=== PATIENT | female | born 1975 | race Caucasian/White ===

== ENCOUNTER 2024-07-13 11:17 | Emergency (ER) | payer OTHER ==
[~2024-07-13] VITALS: Ht 152.4 cm; Wt 62.7 kg
[2024-07-13 11:30] VITALS: BP 159/101; PULSE 63; RESP 16; TEMP 98.2; O2SAT 98
[2024-07-13] MEDS: KETOROLAC 60 MG/2 ML VIAL IM ONE (11:59)
[2024-07-13] MEDS ORDERED: ONDA8TAB87 PO (12:18)
[2024-07-13] MEDS ORDERED: IBUP-2213 PO (12:18)
[2024-07-13] MEDS: ONDANSETRON 4 MG ODT PO ONE (12:19)
[2024-07-13 12:30] VITALS: BP 159/101; PULSE 63; RESP 16; TEMP 98.2; O2SAT 98
== END 2024-07-13 12:30 | disposition home or self-care (01) ==
LOC: MED 11:17
DX: R51.9 Headache, unspecified (principal); R11.2 Nausea with vomiting, unspecified; M54.2 Cervicalgia; I10 Essential (primary) hypertension
CPT/HCPCS: 81025; 96372; 99283; J1885; Q0162